=== PATIENT | female | born 2000 | race African-American/Black ===

== ENCOUNTER 2024-01-22 03:19 | Observation (INO) | payer BC, SELFPAY ==
[2024-01-21 19:51] VITALS: BP 137/95
--- NOTE | 2024-01-21 19:52 | ED.PDOC.TRB ---
ED Provider Triage
-
Patient seen by provider in Triage?: Seen in Triage
*Initial assessment in triage to expedite workup*
23-year-old female presents the emergency department with frequent headaches and visual abnormalities in the right eye. She was seen by her rug hooker hand on Thursday and reportedly was told she had unilateral papilledema/increased optic nerve
pressure. She was advised to come to the emergency department with specific instructions for MRI of the brain with and without contrast as well as an MRV of the head with consideration of a lumbar puncture for diagnostic and therapeutic purposes.
She is scheduled to see a neurologist next week. Reports mild headache right now. Denies any gait disturbance or urinary incontinence
Patient appears clinically well. Will order initial basic labs and CT of the head. Does not appear to be severely functionally debilitated. Do not feel that she will need admission as outpatient workup may suffice
[2024-01-21 20:20] LABS: % Basophils 0.3 % (0-2); % Eosinophils 1.3 % (0-6); % Immature Granulocytes 0.3 % (0-0.5); % Lymphocytes 36.8 % (20.5-51.1); % Monocytes 5.7 % (1.7-9.3); % Neutrophils 55.6 % (42.2-75.2); Absolute Eosinophils 0.1 10^3/uL (0-0.7); Absolute Lymphocytes 3.2 10^3/uL (1.2-3.4); Absolute Monocytes 0.5 10^3/uL (0.1-0.6); Absolute Neutrophils 4.9 10^3/uL (1.4-6.5); Hematocrit 35.1 % (37.0-47.0); Hemoglobin 11.8 g/dL (12.0-16.0); Mean Corp Hgb Conc. 33.6 g/dL (33.0-37.0); Mean Corpuscular Hgb 30.4 pg (27.0-31.0); Mean Corpuscular Volume 90.5 fL (81.0-99.0); Mean Platelet Volume 9.5 fL (7.4-10.4); Nucleated Red Blood Cells % 0 %; Platelet Count 294 10^3/uL (130-400); Red Blood Cell Count 3.88 10^6/uL (4.20-5.40); Red Cell Dist. Width 12.3 % (11.5-14.5); White Blood Cell Count 8.7 10^3/uL (4.8-10.8)
[2024-01-21 20:31] LABS: HCG, Serum Qualitative Screen Negative
[2024-01-21 20:34] LABS: ALT (SGPT) 19 U/L (0-35); AST (SGOT) 24 U/L (14-36); Albumin 4.3 g/dl (3.5-5.0); Alkaline Phosphatase 71 U/L (38-126); Blood Urea Nitrogen 13 mg/dl (7-17); Carbon Dioxide 21 mmol/L (22-30); Chloride 105 mmol/L (98-107); Glucose 97 mg/dl (70-99); Potassium 4.1 mmol/L (3.5-5.1); Sodium 137 mmol/L (135-145); Total Bilirubin 0.4 mg/dl (0.2-1.3); eGFR > 60.00
--- NOTE | 2024-01-21 23:10 | ED.GENMED ---
History of Present Illness
<ROBBIE Chicas - Last Filed: 01/21/24 23:28>
General
Chief Complaint: Eye Problems
Source: patient
Time Seen by Provider: 01/21/24 22:34
Travel History
Have you had any contact with someone who has COVID-19?: No
Do you have any symptoms of coronavirus? Fever > 100 degrees, chills, cough, shortness of breath, sore throat, loss of taste or smell, muscle aches, or headache?: No
History of Present Illness
History of Present Illness:
23 year old female with no significant past medical hx who presents with intermittent head aches and R eye blurriness that began 1 month ago. Pt was seen by her nursing surgical services director on Thursday and reportedly was told she had unilateral
papilledema/increased optic nerve pressure. She was advised to come to the emergency department with specific instructions for MRI of the brain with and without contrast as well as an MRV of the head with consideration of a lumbar puncture for
diagnostic and therapeutic purposes. She is scheduled to see a neurologist next week. States the blurriness in her eye has not worsened and is located to the peripheries of her vision. States it comes on briefly after getting up from lying down.
Reports mild headache right now. She also reports intermittent dizziness that comes on with blurry vision. Denies nausea, vomiting, eye pain or swelling, recent illness, head injury. Pt wears glasses and contact lenses. Parents are present. She
takes Motrin for her head aches.
Review of Systems
<ROBBIE Chicas - Last Filed: 01/21/24 23:28>
Review of Systems
Allergies reviewed?: Yes
All Other Systems: ROS reviewed and negative except as documented in HPI and ROS
Constitutional: Reports no symptoms
EENT: Reports other (R eye blurriness)
Respiratory: Reports no symptoms
Cardiac: Reports no symptoms
ABD/GI: Reports nausea
: Reports no symptoms
Musculoskeletal: Reports no symptoms
Skin: Reports no symptoms
Neurological: Reports dizzy and headache
Endocrine: Reports no symptoms
Hematologic/Lymphatic: Reports no symptoms
Psychiatric: Reports no symptoms
Phy Exam
<Danielhildadanelle Fofanacheryl [facility] - Last Filed: 01/21/24 23:28>
General Physical Exam
General Presentation: well appearing and no apparent distress
General age: appears stated age
General Skin: warm and dry
General Habitus: normal
General Mental: alert
General Hydration: appears well hydrated
Eye Exam
Eye Exam: PERRL, EOMI, cornea clear, conjunctiva normal and globe normal
Cardiovascular Exam
Cardiovascular Exam: regular rate/rhythm, no edema, no gallop and no murmur
Pulmonary Exam
Pulmonary Exam: lungs clear, no respiratory distress, no rales, no crackles, no rhonchi, no wheezing and no cough
Neurological Exam
Neurological Exam: alert, oriented x3, CN II-XII intact, no motor deficits, no sensory deficits and speech normal
Skin Exam
Skin Exam: normal color and warm/dry
Psychiatric Exam
Psychiatric Exam: normal mood/affect
Course
<Danielcrystal Nazario [facility] - Last Filed: 01/21/24 23:28>
Orders/Labs/Results
Orders:
Orders
01/21/24 19:52
CT Head W/o Iv Contrast Urgent
Comment:
Reason For Exam: headaches, vision changes
Test Result ONCE
01/21/24 20:05
Complete Blood Count/With Diff Urgent
Comprehensive Metabolic Panel Urgent
HCG, Serum Qualitative Screen Urgent
01/22/24 02:34
Admit/Transfer Patient As Directed
Co-Sign Provider:
Level of Care: Observation services
Assign to:: Medical/Surgical
Physician / Group: Jes Cruz
Diagnosis: papilledema, headaches
01/22/24 02:56
Code Status As Directed
Resuscitation Status: Full Code
01/22/24 03:35
Acetaminophen [Tylenol] 650 mg PO Q4HPRN PRN
Polyethylene Glycol Powder [Miralax] 17 grams PO DAILYPRN PRN
01/22/24 03:35
Consult Neurology [NEUROLOGY CONSULT] Routine
Consulting Provider: Chele Tinsley
Was physician already notified: Yes
Activity As Directed
Activity Level: As Tolerated
Pneumatic Compression Sleeves As Directed
Type: Knee high
Vital Signs As Directed
Frequency: Per unit guidelines
DX Deep Vein Thrombosis Video Routine
01/22/24 05:59
Complete Blood Count/With Diff IN AM
01/22/24 Breakfast
Sodium, 2 Gram
At Your Request: Full Participation
Does patient need a safe tray?: No
MRI Brain [MR Brain W/o & With Contrast] IN AM
Comment:
Reason For Exam: papilledema, headaches, change in peripheral visio
Recent pill cam endoscopy?: No
Abnormal Lab Results
01/21/24
20:05
RBC 3.88 L 10^6/uL
(4.20-5.40)
Hgb 11.8 L g/dL
(12.0-16.0)
Hct 35.1 L %
(37.0-47.0)
Carbon Dioxide 21 L mmol/L
(22-30)
01/21/24 20:05
01/21/24 20:05
Vital Signs
Initial and Last Documented VS:
Initial Vital Signs
Temp Pulse Resp BP Pulse Ox
99 F 79 18 137/95 100
01/21/24 19:51 01/21/24 19:51 01/21/24 19:51 01/21/24 19:51 01/21/24 19:51
Last Documented Vital Signs
Temp Pulse Resp BP Pulse Ox
98.5 F 79 16 124/82 97
01/22/24 14:33 01/22/24 14:33 01/22/24 14:33 01/22/24 14:33 01/22/24 15:00
<Sandy Strickland MD - Last Filed: 01/23/24 06:12>
Orders/Labs/Results
Orders:
Orders
01/21/24 19:52
CT Head W/o Iv Contrast Urgent
Comment:
Reason For Exam: headaches, vision changes
Test Result ONCE
01/21/24 20:05
Complete Blood Count/With Diff Urgent
Comprehensive Metabolic Panel Urgent
HCG, Serum Qualitative Screen Urgent
01/22/24 02:34
Admit/Transfer Patient As Directed
Co-Sign Provider:
Level of Care: Observation services
Assign to:: Medical/Surgical
Physician / Group: Jes Cruz
Diagnosis: papilledema, headaches
01/22/24 02:56
Code Status As Directed
Resuscitation Status: Full Code
01/22/24 03:35
Acetaminophen [Tylenol] 650 mg PO Q4HPRN PRN
Polyethylene Glycol Powder [Miralax] 17 grams PO DAILYPRN PRN
01/22/24 03:35
Consult Neurology [NEUROLOGY CONSULT] Routine
Consulting Provider: Chele Tinsley
Was physician already notified: Yes
Activity As Directed
Activity Level: As Tolerated
Pneumatic Compression Sleeves As Directed
Type: Knee high
Vital Signs As Directed
Frequency: Per unit guidelines
DX Deep Vein Thrombosis Video Routine
01/22/24 05:59
Complete Blood Count/With Diff IN AM
01/22/24 Breakfast
Sodium, 2 Gram
At Your Request: Full Participation
Does patient need a safe tray?: No
MRI Brain [MR Brain W/o & With Contrast] IN AM
Comment:
Reason For Exam: papilledema, headaches, change in peripheral visio
Recent pill cam endoscopy?: No
Abnormal Lab Results
01/21/24
20:05
RBC 3.88 L 10^6/uL
(4.20-5.40)
Hgb 11.8 L g/dL
(12.0-16.0)
Hct 35.1 L %
(37.0-47.0)
Carbon Dioxide 21 L mmol/L
(22-30)
01/21/24 20:05
01/21/24 20:05
Vital Signs
Initial and Last Documented VS:
Initial Vital Signs
Temp Pulse Resp BP Pulse Ox
99 F 79 18 137/95 100
01/21/24 19:51 01/21/24 19:51 01/21/24 19:51 01/21/24 19:51 01/21/24 19:51
Last Documented Vital Signs
Temp Pulse Resp BP Pulse Ox
98.5 F 79 16 124/82 97
01/22/24 14:33 01/22/24 14:33 01/22/24 14:33 01/22/24 14:33 01/22/24 15:00
<ROBBIE Chicas - Last Filed: 01/21/24 23:28>
MDM/Problems Addressed
Differential Diagnosis Includes:
optic neuritis, idiopathic intracranial hypertension, myopia
MDM/Problems Addressed:
23 year old female who presents with intermittent head ache and R eye blurry vision that began 1 month ago.
<ROBBIE Chicas - Last Filed: 01/21/24 23:28>
*Critical Care Note
Total Time (30-74mins, 75-104mins- exclusive of procedures): Not Applicable
ED Attending Note
<ROBBIE Chicas - Last Filed: 01/21/24 23:28>
-
Portions of this chart may have been created with voice recognition software.� Occasional wrong word or��sound alike� substitutions may have occurred due to the inherent limitations of voice recognition software.
<Sandy Strickland MD - Last Filed: 01/23/24 06:12>
ED Attending Note
Patient seen and examined by attending physician: Yes
I performed the substantive portion of visit, reviewed & personally made and approve the management plan that is documented in note by myself or JOSSUE.: Yes
ED Attending Note:
23-year-old female who states that she wears contacts and glasses, went for her annual checkup to the nursing surgical services director 2 months ago was noted to have right sided papilledema. She was asked to return 2 months later which was Thursday, and the
papilledema was noted to be worse by the nursing surgical services director. He then spoke to a neurologist who referred the patient in the emergency department for an MRI, MRV, and possible LP. Patient was asymptomatic until about a month ago when she noted
intermittent headaches and 'blurry' vision from the right eye. In further definition of her history, her vision is actually blurry but she notes that the lateral aspect of her visual field is absent when she sits up. This last just a few seconds
and then goes away. Otherwise she denies visual complaints. She denies double vision, numbness, tingling, nausea, vomiting, fever, chills, chest pain, shortness of breath, abdominal pain, or other complaints. On exam, GENERAL: Alert , in no
apparent distress
EYE: pupils equal and reactive, I am unable to appreciate papilledema on funduscopic exam I suspect because patient is not fully dilated, visual gaspar are intact to my exam, EOMI, no nystagmus, no photophobia
NECK: Supple, no significant adenopathy.
ENT: o/p clr, mmm.
CARDIAC: Regular rate and rhythm .
LUNGS: Clear breath sounds bilaterally, no acute respiratory distress, no wheezes/rales/rhonchi
ABDOMEN: Soft, without focal tenderness, no r/g, no cvat
NEUROLOGICAL: Alert and oriented, no focal neuro deficits, [id number] normal, motor 5 out of 5
SKIN: Warm and dry, skin intact.
MUSCULOSKELETAL: No edema, well perfused.
PSYCH: Normal and appropriate interaction.
Patient presents to the Emergency Department with ___headache and visual changes
Number and Complexity of Problems Addressed at the Encounter
� Chronic conditions affecting care:
� Acute Exacerbation and/or Progression of Chronic Illness:
� Differential Diagnosis includes: But not limited to cavernous venous thrombus, I IH, tumor, etc.
Amount and/or Complexity of Data to be Reviewed and Analyzed
� I performed an independent evaluation of and my interpretation is:
EKG:
CT: Read by radiology unremarkable
Xrays:
Laboratory Studies: Read by me, mild anemia, otherwise unremarkable
Other:
� Review of other/old records reveals:
� Clinical information was obtained by an independent historian: Mother who is at bedside, email from neurologist
� Prescriptions/Medications Considered but not given:
� Further testing considered but not performed:
Risk of Complications and/or Morbidity or Mortality of Patient Management
� Social determinants of health affecting care:
� Discussion with other providers (PCP, Hospitalists, Consultants, etc):
� Escalation of care including admission/observation vs risk of discharge considered: Based on history and physical, I suspect I IH is most likely diagnosis, case discussed with neurology, Dr. Tinsley, who agrees with plan for
admission and further testing in AM. Case discussed with Dr. Cruz via [place] text for admission. Neurological exam normal at this time.
Discharge Plan
Departure
Patient Disposition: Admit
Date of Disposition: 01/22/24
Time of Disposition: 00:31
Admit to doctor: terrie
Presentation/result/management discussed w/ accepting MD/DO: Hospitalist
Discharge Problem:
Headache
Interventions
Interventions:
*Risk Screen - Suicide Last Done: 01/21/24 19:51
*General Assessment Last Done: 01/21/24 19:51
*Neglect/Abuse Screening Last Done: 01/21/24 19:51
ED- Fall Risk Assessment Last Done: 01/22/24 18:25
*ED COVID-19 Vaccine History Last Done: 01/22/24 06:04
*Nursing Disposition Last Done: 01/22/24 18:25
Discharge Date and Time
Discharge Date/Time: 01/22/24 18:26
--- NOTE | 2024-01-22 01:59 | HPS.HSE ---
Family Physician
-
Family Physician: Nakia Carvajal
Chief Complaint
-
intermittent headache and right eye blurriness
History of Present Illness
Ms. Sarika Del Real is a 23 yo woman without significant past medical history sent from ophthalmology clinic for finding of worsening papilledema. Patient states she had a routine appointment 2 months ago when papilledema was seen on right and
patient was asymptomatic. She started having intermittent headaches one month later and she stated headaches improved when she received a new glasses prescription. Over past couple of weeks she has noticed blurry peripheral vision when she goes
from a laying to standing position. She had scheduled follow up with manager learning today who noted worsening papilledema. She was sent at the instruction of outpatient neurologist recommending urgent work up with MRI/MRV.
She currently is denying headache or pain with eye movements.
She denies fevers/chills. No nausea/vomiting. No abdominal pain, no diarrhea. No chest pain or shortness of breath. No rash. She does not take medications.
Medical History
Past Medical History
Past Medical History: Reports None
Past Surgical History: Reports None
Social History
Tobacco: Non-smoker
Alcohol: Occasional
Family History
Family History: Not pertinent
Allergies / Home Medications
Allergies reflects when Allergies were last updated in [facility].
Home Medications with original date entered in [facility]
Allergy/Medication List:
Allergies
Allergy/AdvReac Type Severity Reaction Status Date / Time
No Known Allergies Allergy Unverified 01/21/24 19:50
Review of Systems
-
History Source: Patient
A 12 point ROS was completed and negative except as noted: Yes
Physical Exam
Vital Signs
Vital Signs
Temp Pulse Resp BP Pulse Ox
99 F 79 18 137/95 100
01/21/24 19:51 01/21/24 19:51 01/21/24 19:51 01/21/24 19:51 01/21/24 19:51
Physical Exam
General: No Apparent Distress
HEENT: PERRLA and Other (EOMI, no facial asymmetry )
Respiratory: Clear; No Wheezes
Cardiac: S1/S2 and Regular Rhythm
GI: Soft and Non Tender
Musculoskeletal: No Edema
Skin: Warm and Dry; No Rash
Neuro: AO x 3 and Nonfocal/grossly intact
Psych: Calm
Laboratory Results
-
01/21/24 20:05
01/21/24 20:05
Laboratory Results
Total Bilirubin 0.4 mg/dl (0.2-1.3) 01/21/24 20:05
AST 24 U/L (14-36) 01/21/24 20:05
ALT 19 U/L (0-35) 01/21/24 20:05
Alkaline Phosphatase 71 U/L (38-126) 01/21/24 20:05
Data Reviewed
-
Diagnostic Radiology: Report Reviewed by me
Lab Data: Labs Reviewed by me
Impression/Plan
-
Ms. Sarika Del Real is a 23 yo woman without significant past medical history sent from ophthalmology clinic for finding of worsening papilledema. Patient has had intermittent headaches over past month associated with right eye blurriness. She was
initially seen one month ago and re-evaluated today. She was sent at the instruction of outpatient neurologist recommending urgent work up with MRI/MRV.
Triage VS: T 99, P 79, RR 18, BP 137/95, SpO2 100%
LABS: WBC 8.7, Hg 11.8, PLT 294, Na 137, K+ 4.1, Cl 105, CO2 21, Cr 0.8, Glucose 97, Ca 10, T. Bili 0.4, AST 24, ALT 19
HCG negative
HEAD CT
IMPRESSION:
Normal.
Headache
Papilledema
-concern raised for idiopathic intracranial hypertension and with vision changes patient requires urgent work-up
-admit to observation
-MRI with and without contrast, MRV ordered
-if above negative, patient will need LP with measuring opening pressure
-Neurology consult
-low salt diet
DVT PPx SCD
FULL CODE
[2024-01-22 06:00] VITALS: BP 118/70
[2024-01-22 06:21] LABS: % Basophils 0.5 % (0-2); % Eosinophils 1.3 % (0-6); % Immature Granulocytes 0.3 % (0-0.5); % Lymphocytes 41.4 % (20.5-51.1); % Monocytes 6.1 % (1.7-9.3); % Neutrophils 50.4 % (42.2-75.2); Absolute Eosinophils 0.1 10^3/uL (0-0.7); Absolute Lymphocytes 3.1 10^3/uL (1.2-3.4); Absolute Monocytes 0.5 10^3/uL (0.1-0.6); Absolute Neutrophils 3.8 10^3/uL (1.4-6.5); Hematocrit 32.5 % (37.0-47.0); Hemoglobin 10.8 g/dL (12.0-16.0); Mean Corp Hgb Conc. 33.2 g/dL (33.0-37.0); Mean Corpuscular Hgb 29.8 pg (27.0-31.0); Mean Corpuscular Volume 89.5 fL (81.0-99.0); Mean Platelet Volume 9.8 fL (7.4-10.4); Nucleated Red Blood Cells % 0 %; Platelet Count 276 10^3/uL (130-400); Red Blood Cell Count 3.63 10^6/uL (4.20-5.40); Red Cell Dist. Width 12.2 % (11.5-14.5); White Blood Cell Count 7.5 10^3/uL (4.8-10.8)
[2024-01-22 07:30] VITALS: BP 107/61
--- NOTE | 2024-01-22 07:38 | CON.NEURO4 ---
Addendum entered and electronically signed by hCele Tinsley MD 01/22/24 14:51:
LP with opening pressure of 39.
High likelihood this is IIH.
Pending MRI.
Would start Topiramate 25 mg qhs for one week, then 25 mg BID.
Original Note:
Consultation - Neurology 4
-
CONSULTING PHYSICIAN: Emre Tinsley
REFERRING PHYSICIAN: ER
DICTATED BY: Emre Tinsley
DATE/TIME OF REQUEST: 01/22/24
DATE/TIME OF CONSULTATION: 01/22/24
Reason for Consultation: Suspected idiopathic intracranial hypertension
History of Present Illness:
The patient is a 23-year-old woman with no significant past medical history presenting the hospital after being referred by outpatient neuro-ophthalmology at [facility] for expedited testing of concern for idiopathic intracranial hypertension.
Patient had had a yearly checkup of her vision around 2 months ago and was noted to have papilledema and then had a recheck recently which was noted to be worse, she has obtained an appointment at [facility] neuro-ophthalmology in [facility]
[place] for this coming Thursday and was referred to ED for expedited testing with MRI/MRV and consideration for lumbar puncture. Patient began to have significant daily headaches around 1 month ago and she had her glasses prescription adjusted
and did see an improvement in headaches but have not completely abated but have improved greatly in frequency since the change in prescription glasses. She notes that she does have transient episodes of visual blurring seem to be in the right eye
only and this can happen with position changes. She does not note any positional aspect or headache specifically does not see any worsening of the headache when laying supine compared to being upright. No aspects of nausea vomiting photophobia or
phonophobia recently. No recent head injuries no fever chills rashes or outdoor exposures or bug bites to her knowledge. No difficulty with balance. Her headaches do respond to ibuprofen.
Past Medical History: None
Surgical History: None
Family History: No family history of headaches or neurologic disorders
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
Allergies: No known drug allergies
Review of Symptoms:
Patient denies any fever, headache, chest pain, shortness of breath, GI or symptoms.
Physical Exam:
Young woman well-appearing no distress no signs of head or neck trauma normocephalic eyes are clear oropharynx is clear neck supple no meningismus no neck masses, heart rate is regular no murmur appreciated, breathing is unlabored no wheezing,
abdomen is obese soft nontender, no lower extremity edema or rashes seen
Neurologic Examination:
The patient is awake, alert and oriented x 3. She is able to follow commands and answer questions appropriately. There is no aphasia or dysarthria. On cranial nerve assessment, pupils are 3 mm bilateral, round and reactive to light and
accommodation. Vision 20/20 in OD and OS bilaterally. Mild papilledema seen bilaterally. Visual gaspar are full. Extraocular movements are intact. Facial sensations are intact and bilaterally symmetrical, there is no facial asymmetry. Hearing is
intact bilaterally to normal conversation volume. Tongue palate and uvula are midline. Sternocleidomastoid strengths are full bilaterally. Motor strengths are 5/5 bilateral upper and lower extremities on medical research [place] scale. There is no
drift or involuntary movement noted. Deep tendon reflexes are 2+ bilateral upper and lower extremities and Babinski is absent bilaterally. Sensations of pain, touch, temperature and vibration are intact and bilaterally symmetrical. There was no
extinction noted on double simultaneous stimulation. Coordination is intact by finger to nose bilaterally.
Neuro Imaging: CT head non contrast unremarkable, no abnormalities seen
Impressions
1. New headaches starting in the past few months, initially improved after glasses prescription change with there has been finding of papilledema which seems to have worsened compared to previous examination. Patient is young and obese so it
would be the correct context for possible case of idiopathic intracranial hypertension. She does have some transient visual obscurations, no positional headaches at this point. No focal deficits on neurologic examination. CT head noncontrast
reassuring for no large structural lesion. Doubtful that the patient's right eye vision changes represent optic neuritis or manifestation of demyelinating disease.
2.
3.
4.
Recommendations:
1. Check MRI of the brain with and without contrast along with MRV. MRI may be able to see some of the signs of idiopathic intracranial hypertension as well as visualization of any venous sinus thrombosis or venous stenosis.
2. Would additionally check lumbar puncture with opening pressure and cell count protein and glucose.
3. Hopefully we can get both of these studies done today however I do not see an indication for urgent or emergent neuroimaging given no emergent findings from history or examination. Patient has upcoming appointment for neuro-ophthalmology at
[facility] on Thursday. She is also taking the LSAT on Thursday. If not able to get both MRI and LP done today then I feel would be acceptable to discharge and obtain the other study on outpatient basis.
4. No new medications for the time being. Topiramate would be a good choice if Idiopathic Intracranial Hypertension diagnosis becomes clear.
Discussed patient care with: Patient, Dr Yee
--- NOTE | 2024-01-22 08:30 | W.PN.HOSP.TC ---
Today's Communication/Plan
-
MRI/MRV
LP
Assessment / Plan
Assessment / Plan
23-year-old female presented to the hospital with intermittent headache and right eye blurry vision. She was seen in the ophthalmology clinic [place] for worsening papilledema outpatient neurologist sent to the patient for workup MRI/MRV.
Patient states that she has had routine ophthalmology appointment 2 months ago when she was found to have papilledema. They wanted to see her in 2 months and she had a repeat appointment where she was found to have papilledema. She has been having
some headaches also which she states got better since her prescription glasses were changed about 2 weeks ago. Headaches mostly once a week now. She was referred to [facility] where she has an appointment coming up next week.
CVS: S1-S2 normal
Chest: CTA B/L
Abdomen: Soft, NT / Bowel sounds present
Extremities: No edema, normal pulses
GRAIN COMBINER: Non focal exam
# Headache
Papilledema
Ruling out idiopathic intracranial hypertension
MRI and MRV ordered
Lumbar puncture ordered
Neurology consulted
# Anemia-check iron and B12
# DVT prophylaxis
# Full code
Offered to talk to Family, patient declined. Stated that her mother will be here and if she has questions patient has my card I will call her.
Patient has LSAT tomorrow and would like to be discharged today
Discussed with neurology
Anticipated Discharge: Today
Subjective/Interval History
-
Date of Service: January 22, 2024
Objective Data
-
Labs:
Laboratory Results
01/21/24 01/22/24 01/22/24
20:05 05:59 06:53
WBC 7.5
Hgb 10.8 L
Hct 32.5 L
Plt Count 276
Sodium 137 Cancelled Pending
Potassium 4.1 Cancelled Pending
Chloride 105 Cancelled Pending
Carbon Dioxide 21 L Cancelled Pending
BUN 13 Cancelled Pending
Creatinine 0.8 Cancelled Pending
Glucose 97 Cancelled Pending
Calcium 10.0 Cancelled Pending
Total Bilirubin 0.4
AST 24
ALT 19
Alkaline Phosphatase 71
Vital Signs:
Vital Signs
Temp Pulse Resp BP Pulse Ox
98.9 F 70 14 107/61 98
01/22/24 07:30 01/22/24 07:30 01/22/24 07:30 01/22/24 07:30 01/22/24 07:30
[2024-01-22 11:04] VITALS: BP 125/70; BP_SYST 83
[2024-01-22 12:57] LABS: Spinal Fluid Glucose 50 mg/dl (40-70); Spinal Fluid Protein 22 mg/dl (12-60)
[2024-01-22 13:01] LABS: Blood Urea Nitrogen 12 mg/dl (7-17); Calcium 9.5 mg/dl (8.4-10.2); Carbon Dioxide 23 mmol/L (22-30); Chloride 107 mmol/L (98-107); Glucose 102 mg/dl (70-99); Iron 138 ug/dl (37-170); Magnesium 1.8 mg/dl (1.6-2.3); Potassium 3.8 mmol/L (3.5-5.1); Sodium 139 mmol/L (135-145); eGFR > 60.00
[2024-01-22 13:09] LABS: Percent Saturation 40 % (20-50); Total Iron Binding Capacity 339 ug/dl (265-497)
[2024-01-22 13:39] LABS: Ferritin 22.4 ng/ml (6.24-137)
[2024-01-22 13:51] LABS: CSF Clarity Clear; CSF Color Colorless; CSF Tube # 4
[2024-01-22 13:52] LABS: Red Cell Count/CSF 2 mm^3; White Cell Count/CSF 1 mm^3 (0-5)
[2024-01-22 13:53] LABS: Vitamin B12 937 pg/ml (239-931)
[2024-01-22 14:32] VITALS: BP 124/82
[2024-01-22 14:33] VITALS: BP 124/82
--- NOTE | 2024-01-22 14:48 | PTCARENOTE ---
the pt was received from previous RN, the pt is resting in stretcher in the lowest position, side rails up x2, call callaway within reach, HOB elevated, VS WNL, no s/s of distress, the pt has c/o headache, this RN will notify the provider as there are
no PRN medications for headache, assessment performed in work list, admission performed in work list, the pt was instructed to lay flat post lumbar puncture, the pt denies needing anything at this time, will continue to monitor the pt closely
[2024-01-22] MEDS: MOTRIN 600 MG PO (15:15)
--- NOTE | 2024-01-22 16:56 | W.PN.UPDATE ---
Addendum entered and electronically signed by Casey Yee MD 01/22/24 18:13:
Discussed with Dr. Romero
Called ECHO and D/W Cards re ECHO
ECHO normal
Likely Benign flow Mr
D/W Parents
Total discharge coordination time 45 min- [id number]
Original Note:
Update Note
Progress Note Update
LP Opening pressure 39 cm water.
Highly likely IIH
MRI Pending (pt getting now)
Met with parents at bed side
Discussed with Neuro
Start Topamax 25 daily for one week then 25 BID
Close follow-up with outpatient neurology discussed with parents.
Nursing to provide information regarding medicine obtained from pharmacy.
If normal will discharge
--- NOTE | 2024-01-22 18:10 | EDRN ---
this RN printed education about the prescription that is going to be given by provider, the prescription is Topiramate and this RN gave discharge teaching and a discharge packet about the medication
--- NOTE | 2024-01-22 18:10 | W.DS.TRANS ---
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
-
Discharge Instructions:
Discharge Diagnosis/Procedures Headache and blurry vision, Likely Idiopathic
intracranial Hypertension,
Diet Low Sodium
Activity As tolerated
Driving Restrictions Driving per recommendation from ophthalmology
Bathing Restrictions OK to Shower
Blood Work CBC in one month
Instructions: Idiopathic Intracranial Hypertension (DC)
Idiopathic intracranial hypertension (pseudotumor cerebri)
Stand-Alone Forms:
Changes to Home Medications: Yes
Discharge Medications:
DC Medications w/original date entered in [facility]
topiramate 25 mg tablet (Topamax) See Rx Instructions .Route .COMPLEX Neurological Condition #60 tabs 01/22/24
Home Medication Changes
topamax new
Pending Results: Yes
Additional Pending Results:
LP fluid studies
--- NOTE | 2024-01-22 18:24 | EDRN ---
discharge paper work given to the pt and the pts family, copies of the pts test reports were also printed out and given to the pt, discharge questions were answered
[2024-01-26 19:09] LABS: Albumin Index 3.9 ratio (0.0-9.0); Albumin, CSF 13 mg/dL (0-35); Albumin, Serum 3352 mg/dL (3500-5200); CSF IgG Synthesis Rate <0.0 mg/d (<=8.0); CSF IgG/Albumin Ratio 0.22 ratio (0.09-0.25); CSF Oligoclonal Bands Negative (Negative); CSF Oligoclonal Bands Number 0 Bands (0-1); IgG 1323 mg/dL (768-1632); IgG, CSF 2.9 mg/dL (0.0-6.0)
== END 2024-01-22 18:30 | disposition home or self-care (01) ==
LOC: ED 03:19
PROVIDERS: Physician Assistant; Radiology Diagnostic Radiology; ADMITTING PHYSICIAN Student in an Organized Health Care Education/Training Program; ATTENDING PHYSICIAN Hospitalist; CONSULT PHYSICIAN Student in an Organized Health Care Education/Training Program; EMERGENCY PHYSICIAN Emergency Medicine; FAMILY PHYSICIAN Family Medicine
PROC: 009U3ZX Drainage of Spinal Canal, Percutaneous Approach, Diagnostic (ICD-10-PCS; 2024-01-22)
PROC: B01BZZZ Fluoroscopy of Spinal Cord (ICD-10-PCS; 2024-01-22)
DX: R51.9 Headache, unspecified (principal); H53.8 Other visual disturbances; H47.11 Papilledema associated with increased intracranial pressure; D64.9 Anemia, unspecified
CPT/HCPCS: 62328; 70450; 70546; 70553; 80048; 80053; 82040; 82042; 82607; 82728; 82784; 82945; 83540; 83550; 83735; 83916; 84157; 84703; 85025; 89051; 93306; 99284; A9585; G0378